=== PATIENT | female | born 1985 | race Caucasian/White ===

== ENCOUNTER 2017-12-23 17:54 | Emergency (ER) | payer SELFPAY ==
[2017-12-23 17:55] VITALS: BP 102/74; PULSE 82; RESP 18; TEMP 36.6; O2SAT 98; BMI 30.6
[2017-12-23 18:35] LABS: Mucous, Urine 0 SEEN /hpf (<or=2+); Red Blood Cells-Urine 0 SEEN /hpf (0-5)
[2017-12-23 18:53] LABS: Color, Urine Yellow (Yellow); Glucose, Dipstick Normal (Normal); Ketone-Dipstick 5 mg/dl (Negative); Leukocyte Esterase-Dipstick 100 /ul (Negative); Nitrite-Dipstick Negative (Negative); Occult Blood-Urine Negative /ul (Negative); Protein-Dipstick 30 mg/dl (Negative); Urine Clarity Cloudy (Clear); Urine Urobilinogen 1 mg/dl (Normal)
[2017-12-23 19:02] LABS: Urine Bilirubin Dipstick 1 mg/dL (Negative)
[2017-12-23 19:04] LABS: Squamous Epithelial Cells - UA 0-5 SEEN /hpf (5-10)
[2017-12-23 19:05] LABS: Bacteria 2+ /hpf (None Seen)
[2017-12-23 19:06] LABS: White Blood Cells 0-5 SEEN /hpf (0-5)
--- NOTE | 2017-12-23 19:40 | ED.VISSUMM ---
- ER Visit Summary Date of Service: 12/23/17 Chief Complaint: Pain with urination History of Present Illness: The patient is a 32 F states for 4 months she has had dysuria. Denies any fever. She has had recent diarrhea. Last menstrual period was 1-2 weeks ago. Previously Ab1 with that being a miscarriage. Denies any vaginal bleeding or discharge currently. Physical Examination: Well-appearing young female. Vital signs are stable afebrile. She does not look septic or toxic. She is no acute distress. Holding a child standing in the room. H EENT exam unremarkable. Neck nontender no lymphadenopathy. Lungs clear to auscultation bilaterally. Heart regular rhythm no murmur. Abdomen soft nontender, nondistended, normal bowel sounds. No peritoneal signs. Both right upper right lower quadrant unremarkable. No obvious hernias or masses. Moving all 4 extremities. Calves nontender no edema. Back exam nontender. Neurologically she is awake alert with no focal motor deficits. Test Results: Urinalysis shows 2+ bacteria but no white cells, no red cells nor nitrates. Given that this is been 4 months I will send a urine culture before trying any antibiotic therapy. Emergency Department Course and Treatment: Urine culture pending. Hold antibiotic therapy at this time. Treatment Plan: Cranberry juice. Tylenol Motrin for pain. Follow up with her primary care physician at the [facility]. Disposition: dc Impression: Dysuria of uncertain etiology This note was generated with [employer] dictation software. It may contain incorrect words, spelling, and punctuation that were not noted in review of the chart prior to signing ED Disposition - Plan for ED Patient: Chief Complaint: Complaint Referrals: Shahla Valdovinos MD [Primary Care Provider] -
--- NOTE | 2017-12-23 19:43 | ED.DCSUM_ITS ---
- ER Visit Summary Date of Service: 12/23/17 Chief Complaint: Pain with urination History of Present Illness: The patient is a 32 F states for 4 months she has had dysuria. Denies any fever. She has had recent diarrhea. Last menstrual period was 1-2 weeks ago. Previously Ab1 with that being a miscarriage. Denies any vaginal bleeding or discharge currently. Physical Examination: Well-appearing young female. Vital signs are stable afebrile. She does not look septic or toxic. She is no acute distress. Holding a child standing in the room. H EENT exam unremarkable. Neck nontender no lymphadenopathy. Lungs clear to auscultation bilaterally. Heart regular rhythm no murmur. Abdomen soft nontender, nondistended, normal bowel sounds. No peritoneal signs. Both right upper right lower quadrant unremarkable. No obvious hernias or masses. Moving all 4 extremities. Calves nontender no edema. Back exam nontender. Neurologically she is awake alert with no focal motor deficits. Test Results: Urinalysis shows 2+ bacteria but no white cells, no red cells nor nitrates. Given that this is been 4 months I will send a urine culture before trying any antibiotic therapy. Emergency Department Course and Treatment: Urine culture pending. Hold antibiotic therapy at this time. Treatment Plan: Cranberry juice. Tylenol Motrin for pain. Follow up with her primary care physician at the [facility]. Disposition: dc Impression: Dysuria of uncertain etiology This note was generated with [employer] dictation software. It may contain incorrect words, spelling, and punctuation that were not noted in review of the chart prior to signing ED Disposition - Plan for ED Patient: Chief Complaint: Complaint Referrals: Shahla Valdovinos MD [Primary Care Provider] -
--- NOTE | 2017-12-23 19:43 | ED.DEP ---
ED Disposition - Plan for ED Patient: Disposition: Home or Assisted Living Chief Complaint: Complaint Instructions: ED Dysuria Uncertain Cause Referrals: Shahla Valdovinos MD [Primary Care Provider] - As soon as possible Additional Instructions: Plenty of water and cranberry juice. Tylenol and Motrin for pain. Your urinalysis did not show an infection however we will send a urine culture those results should be back in 48 hours if there is any signs of infection we will contact you. At this time we will hold off on any antibiotic therapy.
== END 2017-12-23 19:52 | disposition home or self-care (01) ==
PROVIDERS: Emergency Provider Emergency Medicine; Family Provider Internal Medicine; PCP Internal Medicine
DX: R30.0 Dysuria (principal); Z72.0 Tobacco use
CPT/HCPCS: 81001; 87086; 87088; 87186; 99282

== ENCOUNTER → 2019-01-11 17:14 | Outpatient (CLI) | payer MEDICAID, SELFPAY ==
[2018-08-06 02:15] VITALS: BMI 22.2
[2019-01-16 15:47] LABS: HPV Reflexed? NOT INDICATED
== END ==
PROVIDERS: Family Provider Internal Medicine; PCP Internal Medicine; Visit Provider Obstetrics & Gynecology
DX: Z12.4 Encounter for screening for malignant neoplasm of cervix (principal); R30.0 Dysuria
CPT/HCPCS: 87086; 87088; 87186; 87624; 88175; G0145

== ENCOUNTER → 2019-01-12 07:38 | Outpatient (CLI) | payer MEDICAID, SELFPAY ==
[2018-08-06 02:15] VITALS: BMI 22.2
--- NOTE | 2019-01-11 | ECC_PTH ---
PATIENT: SHERRILL GOMES LOC: [facility] U#:[id number] AGE/SX: 39/F ROOM: RE01/12/[address]: Dr. Flaquito Brown MD : 1985 BED: DIS: SPEC #: [id number] RECD: 01/11/19 16:50 STATUS: ELDA ZAC #: [id number] WILLIAM: 01/11/19 00:[address]: Flaquito Brown DEPT: SURGICAL PATHOLOGY RECD BY: Paul Menjivar ENTERED: 01/12/19 10:41 SP TYPE: ECC SHLOMO DR: Dr. Shahla Valdovinos MD Tissues: Endocervical Procedures: Surgery Specimen Level IV HEADER OPERATION: ECC PRE-OP DIAGNOSIS: N84.1 TISSUE SUBMITTED: ECC MICROSCOPIC DIAGNOSIS Endocervix, curettings: Strips of benign superficial endocervix with squamous metaplasia. AM:gracy 01/15/19 MICROSCOPIC DESCRIPTION Slides are reviewed. GROSS DESCRIPTION Received in fixative is one container labeled with the patient's name and designated ECC. The specimen consists of multiple irregular fragments of bustamante-pink mucoid tissue that in aggregate measure 3 x 2.5 x 0.2 cm. The entire specimen is submitted in one cassette. / SJ:gracy 01/12/19 TC:5 CPT: 65161
== END ==
PROVIDERS: Family Provider Internal Medicine; PCP Internal Medicine; Referring Provider Obstetrics & Gynecology; Visit Provider Obstetrics & Gynecology
DX: N84.1 Polyp of cervix uteri (principal)
CPT/HCPCS: 88305

== ENCOUNTER 2019-12-04 18:39 | Emergency (ER) | payer SELFPAY ==
[2018-08-06 02:15] VITALS: BMI 22.2
[2019-12-04 18:42] VITALS: BP 122/83; PULSE 94; RESP 16; TEMP 36.6; O2SAT 97; BMI 25.4
--- NOTE | 2019-12-04 18:51 | ED.VIS.GEN ---
History of Present Illness Chief Complaint: Bite Informant: Patient Onset: Days Context: Gradual Onset Timing: Continuous Current Severity: Moderate Maximum Severity: Moderate Narrative: The patient presents to the emergency department with tick bite on her right shoulder. Happened about 5 days ago. Significant other at the bedside says that he removed it was unsure if he got the head. It has gotten more red in the area. She denies any fevers or chills. She does describe some local tenderness, but denies any arthralgias or myalgias. She states she is otherwise been in her normal state of health. She has no history of immunosuppression. Prior similar symptoms: No Recent Illness/Hospitalization: No Past Medical History - Allergies and Home Meds Allergies/Adverse Reactions: Allergies No Known Allergies Allergy (Verified 12/04/19 18:42) Primary Care Physician: NOT,DEFINED [NON-STAFF] - Prior records reviewed: Yes Past Medical History: None Surgical History: no surgical history Smoking Status: Current every day smoker Review of Systems General: Denies: Chills, Fever, Sweats Eyes: Denies: Visual changes - bilaterally, Diplopia ENT: Denies: Rhinorrhea, Sore throat Cardiovascular: Denies: Chest pain, Palpitations Respiratory: Denies: Dyspnea, Cough, Dyspnea on exertion Gastrointestinal: Denies: Abdominal pain, Nausea, Vomiting, Diarrhea, Melena, Hematochezia Genitourinary: Denies: Dysuria, Hematuria, Frequency Musculoskeletal: Denies: Back pain, Extremity Pain Skin: Denies: Rash, Wounds Neurological: Denies: Headache, Weakness, Numbness Physical Exam Vital Signs/Narrative: Vital Signs Temp Pulse Resp BP Pulse Ox 12/04/19 18:42 97.9 F 94 16 122/83 H 97 Inital Vital Signs reviewed: Yes General: Well nourished, Well developed, No Acute Distress Head: Normocephalic, Atraumatic Eyes: Perrl, EOMI ENT: Moist mucous membranes, No rhinorrhea Neck: Supple, Nontender Cardiovascular: Regular rate, Regular rhythm, No murmurs Respiratory: No distress, CTA bilaterally, Chest tenderness - Patient has 3 cm ovoid cellulitis with central puncture. There is no evidence of foreign body with palpation. There is no central clearing or target lesion. Abdomen: Soft, Nontender, Nondistended, Normal bowel sounds Back: Nontender, Normal Inspection Extremities: Nontender, No edema Skin: Normal color, No rash Neurological: Alert, Oriented x3, Cranial nerves II-XII grossly intact, Normal Strength, Normal Sensation Psychological: Normal affect, Normal Mood Diagnostic/Tx/Re-eval - Medical Decision Making The patient has a small area of cellulitis versus local reaction to the bite was. It is not a target lesion. They were concerned that they were not able to remove the head. I cannot visualize any head. The area was anesthetized with 1% lidocaine with epinephrine. Small incision was made over the bodies. The wound was explored. There was no evidence of retained foreign body. With a local reaction, I will treat the patient with doxycycline. She was counseled on local wound care and reasons to return. She will be discharged home. Impression 1. Tick bite with local cellulitis ED Disposition - Plan for ED Patient: Instructions: ED Bite Tick Abx Tx Prescriptions: Doxycycline 100 mg PO BID #20 cap Prescription Printed Referrals: NOT,DEFINED [NON-STAFF] -
== END 2019-12-04 19:33 | disposition home or self-care (01) ==
LOC: ED 19:07
PROVIDERS: Emergency Provider Emergency Medicine
DX: S40.261A Insect bite (nonvenomous) of right shoulder, initial encounter (principal); W57.XXXA Bitten or stung by nonvenomous insect and other nonvenomous arthropods, initial encounter; Y93.9 Activity, unspecified; Y92.9 Unspecified place or not applicable; L03.113 Cellulitis of right upper limb; F17.200 Nicotine dependence, unspecified, uncomplicated
CPT/HCPCS: 10120; 99283